=== PATIENT | male | born 1975 | race Caucasian/White ===

== ENCOUNTER 2018-10-03 20:06 | Emergency (ER) | payer SELFPAY ==
[~2018-10-03] VITALS: Ht 177.8 cm; Wt 103.0 kg
[2018-10-03 20:17] VITALS: Ht 177.8 cm; Wt 103.0 kg
[2018-10-03 21:18] VITALS: BP 170/107
== END 2018-10-03 21:18 | disposition home or self-care (01) ==
LOC: ED 20:06
DX: B34.9 Viral infection, unspecified (principal)